=== PATIENT | male | born 1950 | race Caucasian/White ===

== ENCOUNTER 2018-07-26 11:08 | Observation (INO) | payer MEDICARE ==
[~2018-07-26] VITALS: Ht 177.8 cm; Wt 86.6 kg
[2018-07-26] VITALS (15 sets, daily range): BP systolic 97–158; BP diastolic 57–96
--- NOTE | ~2018-07-26 | H ---
[address] [address] HISTORY AND PHYSICAL Name: ANGELA HARDWICK Room: [address] M.RLindsay#: [id number] Admission: 07/26/18 Attend Phys: Angela Grossman MD, Discharge: 07/27/18 Date of : 52 Report #: [id number] THIS REPORT FOR: //name// Please refer to the History and Physical performed in the physician's office. By: 0645Medical Records Staff LAKESHIA /STEPHANIE
[2018-07-26 11:46] LABS: HEMATOCRIT 37.5 % (42.0-52.0); HEMOGLOBIN 12.9 gm/dL (14.0-18.0); MCH 29.8 pg (26.0-34.0); MCHC 34.4 g/dL (28.0-37.0); MCV 86.7 fL (80.0-100.0); MPV 8.1 fl. (7.2-11.1); RBC 4.33 mil/uL (4.50-6.00); RDW-CV 14.2 % (10.5-14.5); WBC 9.4 thou/uL (4.0-11.0)
[2018-07-26 11:54] LABS: ANION GAP 9 mmol/L (7-16); BUN 37 mg/dL (7-18); CALCIUM 8.9 mg/dL (8.5-10.1); CHLORIDE 107 mmol/L (98-107); CO2 28 mmol/L (21-32); CREATININE 1.8 mg/dL (0.6-1.3); GLUCOSE 170 mg/dL (70-99); POTASSIUM 4.5 mmol/L (3.5-5.1); SODIUM 144 mmol/L (136-145)
[2018-07-26 11:55] LABS: APTT 28.2 Seconds (25.0-31.3); PROTIME 10.4 Seconds (9.20-11.50)
[2018-07-26 11:58] LABS: ALBUMIN 3.6 g/dL (3.4-5.0); ALKALINE PHOSPHATASE 76 U/L (46-116); CHOLESTEROL 152 mg/dL (<200); HDL CHOLESTEROL 52 mg/dL (>40); LDL CHOLESTEROL 88 mg/dL (<100); SGOT 16 U/L (15-37); SGPT 33 U/L (30-65); TC:HDL 2.9 Ratio (Not establshd); TOTAL BILIRUBIN 0.4 mg/dL (<0.1-1.0); TOTAL PROTEIN 7.1 g/dL (6.4-8.2); TRIGLYCERIDE 60 mg/dL (<150); VLDL 12 mg/dL (<40)
[2018-07-26] MEDS ORDERED: CELEXA20 MG PO (11:58)
[2018-07-26] MEDS ORDERED: ASPIRIN325 PO (11:59)
[2018-07-26] MEDS ORDERED: LYRICA 75 MG CA75 MG PO (11:59)
[2018-07-26] MEDS ORDERED: COZAAR 25 MG TA25 M1 PO (12:00)
[2018-07-26] MEDS ORDERED: ZOCOR20 MG PO (12:00)
[2018-07-26 12:01] LABS: SERUM ASSESSMENT Clear
[2018-07-26] MEDS ORDERED: LANTUS100 UNIT/M SUBQ (12:02)
[2018-07-26] MEDS ORDERED: DOXYCYCLINE 10100 MG PO (12:05)
--- NOTE | 2018-07-26 15:38 | EKG ---
[place] [address] ELECTROCARDIOGRAM REPORT Name: ANGELA HARDWICK Room: [address]R.#: [id number] Admission: 07/26/18 Attend Phys: Angela Grossman MD, Discharge: Date of : 52 Report #: [id number] THIS REPORT FOR: //name// [facility] Test Date: 2018-07-26 Test Time: 11:42:32 Pat Name: ANGELA HARDWICK Department: Room: [facility] Gender: M Patient Information Coordinator: : 1950 Requested By: Angela Grossman Order Number: [id number] Ramesh MD: Angela Grossman Measurements Intervals [place] Rate: 58 P: 25 VA: 176 QRS: 22 QRSD: 155 T: 23 QT: 479 QTc: 471 Interpretive Statements Sinus rhythm Right bundle branch block No previous ECG available for comparison Electronically Signed On 07-26-2018 15:38:44 INSPECTOR STRUCTURAL BONDING by Angela Grossman [email or web address] <ELECTRONICALLY SIGNED> By: Angela Grossman MD, [facility] 07/26/18 1538 1142 1142 Angela Grossman MD, FACC /EPI
--- NOTE | 2018-07-26 15:40 | EKG ---
[place] [address] ELECTROCARDIOGRAM REPORT Name: ANGELA HARDWICK Room: [address]R.#: [id number] Admission: 07/26/18 Attend Phys: Angela Grossman MD, Discharge: Date of : 52 Report #: [id number] THIS REPORT FOR: //name// [facility] Test Date: 2018-07-26 Test Time: 15:21:26 Pat Name: ANGELA HARDWICK Department: Room: [facility] Gender: M Temperature Regulator Pyrometer: : 1950 Requested By: Angela Grossman Order Number: [id number] Ramesh MD: Angela Grossman Measurements Intervals [place] Rate: 66 P: 34 [place]: 155 QRS: 51 QRSD: 155 T: 42 QT: 450 QTc: 472 Interpretive Statements Sinus rhythm Right bundle branch block No previous ECG available for comparison Electronically Signed On 07-26-2018 15:40:09 TRAINING COORDINATOR by Angela Grossman [email or web address] <ELECTRONICALLY SIGNED> By: Angela Grossman MD, [facility] 07/26/18 1540 1521 1521 Angela Grossman MD, FACC /EPI
--- NOTE | 2018-07-26 16:44 | CARD ---
[address] [address] CARDIAC CATH REPORT Name: HARDWICKANGELA Albarado Room: [address] Steffanie#: [id number] Admission: 07/26/18 Attend Phys: Angela Grossman MD, Discharge: Date of : 52 Report #: [id number] THIS REPORT FOR: //name// APPROVED REPORT Study performed: 07/26/2018 11:47:45 Patient Details Patient Status: Out-Patient Room #: The patient is a 67 year-old male Event Personnel Angela Grossman Test Automation Architect, Sandra Mays RN, Lavelle Nair, Crystal Arteaga TRAY WORKER Scrub Procedures Performed Left heart catheterization selective coronary angiography and percutaneous coronary intervention to the LAD Indication Positive stress test, Chest pain Risk Factors Hypercholesterolemia, Hypertension Admission/Lab Medications/Medications given during procedure Aspirin, Platelet Aff. Inhib., Angiomax bolus and infusion Procedure Narrative The patient was brought electively to the Cardiac Catheterization Laboratory and was prepped and draped in a sterile manner. The right femoral was infiltrated with 2% Lidocaine subcutaneous anesthesia. A 6fr Ultimum Sheath sheath was inserted into the right femoral artery. Coronary angiography was performed using coronary diagnostic catheters. The right coronary system was accessed and visualized with a Diagnostic - JR4 catheter. The left coronary system was accessed and visualized with a Diagnostic - JL4 catheter. The left ventricle was accessed and visualized with a Diagnostic - PIG catheter. Left ventricular/Aortic Valve gradient assessed via catheter pullback. Pre-demployment femoral angiogram was performed . Closure device was deployed with a 6 Fr Angioseal STS 6Fr. The patient tolerated the procedure well and there were no complications associated with the procedure. There was no hematoma. Intra[place] [address] CARDIAC CATH REPORT Name: ANGELA HARDWICK Room: [address]#: [id number] Admission: 07/26/18 Attend Phys: Angela Grossman MD, Discharge: Date of : 52 Report #: [id number] Sedation start time: 1301 Case end Time: 1418 Fentanyl 25 mcg Versed 2 mg Fluoro Time: 23.9 minutes Dose: DAP 243591 cGycm2 2175 mGy Contrast Type and Amount: Visipaque 350 ml Diagnostic Cath Left Main 0% narrowing LAD 90% proximalmid vessel narrowing with 80% mid vessel stenosis and 80% distal stenosis Circumflex Dominant vessel with 40% distal narrowing and 30% narrowing of the prominent marginal branch in its midportion Right Coronary Small nondominant vessel with 30% mid vessel narrowing Left Ventriculography Left Ventriculography was not performed. IVUS Findings NC Trek RX 2.25x12 Hemodynamics The aortic pressure is 154/90 mmHg with a mean of 108 mmHg. The left ventricular pressure is 223/3 mmHg with a mean of mmHg. The left ventricular end diastolic pressure is 30 mmHg. PCI Technique Lesion Anticoagulation was achieved with Angiomax. Patient was preloaded with Angiomax IV 13 mg per kg. Percutaneous coronary intervention was performed on the mid left anterior descending artery segmentdistal left anterior descending artery segment. A 6FR XB 3.5 100CM Guide Catheter was used to engage the ostium. A IG: BMW 190cm Interventional Guidewire was used to cross the lesion. BALLOON DILATION A Balloon catheter Trek RX 2.25 X 12 was inserted and inflated up to 10.00atm for 11seconds. Additional Inflation: 8atm for 5seconds. Additional Inflation: 12atm for 15seconds. 10 MACHO FOR 19 SEC 10 MACHO FOR 11 SEC BALLOON DILATION A Balloon catheter NC Trek RX 2.25x12 was inserted and inflated up to 16atm for 10seconds. Additional Inflation: 16atm [place] 10[place]. [place] [address] CARDIAC CATH REPORT Name: ANGELA HARDWICK Room: [address] Steffanie#: [id number] Admission: 07/26/18 Attend Phys: Angela Grossman MD, Discharge: Date of : 52 Report #: [id number] STENT DEPLOYMENT A stent Xience Josy 2.86B46hj was inserted and inflated up to 10.00atm for 20seconds. Additional Inflation: 11atm for 15seconds. POST STENT DEPLOYMENT BALLOON DILATION A Balloon catheter NC Trek RX 2.25x12 was inserted and inflated up to 18atm for 10seconds. Additional Inflation: 19atm for 12seconds. Additional Inflation: 14atm for 7seconds. PCI Technique Lesion 2 Percutaneous Coronary Intervention was performed on the distal left anterior descending artery segment. Balloon Dilation A Balloon catheter NC Trek RX 2.25x12 was inserted and inflated up to macho for seconds. Stent Deployment A stent Xience Josy 2.01O26sd was inserted and inflated up to 18atm for 11seconds. Additional Inflation: 19atm for 11seconds. Post Stent Deployment Balloon Dilation A Balloon catheter was inserted and inflated up to 10atm for 19seconds. STENT DEPLOYMENT A stent Xience Josy 2.5X23mm was inserted and inflated up to 10.00atm for 11seconds. Additional Inflation: 12.00atm for 5seconds. Additional Inflation: 15atm for 11seconds. 16 MACHO FOR 13 SEC Conclusion #1 significant coronary artery disease characterized by the following: A 90% proximalmid LAD stenosis with 80% mid vessel stenosis and 80% distal stenosis B dominant circumflex with 40% distal narrowing and 30% narrowing of the midportion of the prominent marginal branch C non- dominant right coronary artery with 30% [place] [address] CARDIAC CATH REPORT Name: ANGELA HARDWICK Room: [address] Giovanni Valiente#: [id number] Admission: 07/26/18 Attend Phys: Angela Grossman MD, Discharge: Date of : 52 Report #: [id number] #2 normal left-sided hemodynamics study #3 successful percutaneous coronary intervention with deployment of sequential drug-eluting stents at the sites of 90% proximalmid, 80% mid, and 80% distal stenosis with 10 and 0 and 0% residual narrowings and GABINO-3 flow the distal vessel Recommendations Cardiac Risk Reduction Program Aggressive Medical Therapy Medications Administered Aspirin (any) Ticagrelor Diagnostic Cath Approved by: Angela Grossman MD Date/Time: 07/26/2018 16:42:28 <ELECTRONICALLY SIGNED> By: Angela Grossman MD, [facility] 07/26/18 1644 1644 1644Angela Grossman MD, FAC /INF
--- NOTE | 2018-07-26 18:03 | NUR ---
PT ARRIVED TO UNIT AT APPROX 1500, PLACED ON WEED CONTROLLER AND VITAL CHECKS. RIGHT GROIN SITE INTACT WITH NO HEMATOMA, DRESSING IS CLEAN, DRY, AND INTACT WELL. IV RIGHT AC, FLUIDS RUNNING. PT ORIENTED TO ROOM AND CALL LIGHT, INSTRUCTED TO LAY FLAT AND AVOID PUTTING ANY PRESSURE ON SITE, PT STATES UNDERSTANDING. VSS, PT DENIES ANY PAIN OR SOA.
[2018-07-27] VITALS: BP 139/65
[2018-07-27 04:00] VITALS: BP 129/51
[2018-07-27 05:17] LABS: HEMATOCRIT 31.7 % (42.0-52.0); HEMOGLOBIN 11.2 gm/dL (14.0-18.0); MCH 30.6 pg (26.0-34.0); MCHC 35.3 g/dL (28.0-37.0); MCV 86.9 fL (80.0-100.0); MPV 8.5 fl. (7.2-11.1); RBC 3.65 mil/uL (4.50-6.00); RDW-CV 14.5 % (10.5-14.5); WBC 10.6 thou/uL (4.0-11.0)
--- NOTE | 2018-07-27 05:37 | NUR ---
ASSUMED PT CARE AT 1930. PT AWAKE AND ORIENTED X4. VSS. CABLE REELER IN PLACE TRACING SR. DENIES ANY CHEST PAIN. POST CATH INSERTION SITE DRESSING IS DRY AND INTACT, NO HEMATOMA NOTED. WAS OFF BED REST AT APPROXIMATELY 2039. WAS ABLE TO STAND UP AND AMBULATE WITHOUT DIFFICULTY. WAS ABELE TOSLEEP THROUGH THE NIGHT. CALL LIGHT WITHIN REACH. HOURLY ROUNDING DONE FOR SAFETY
[2018-07-27 05:52] LABS: ALBUMIN 2.8 g/dL (3.4-5.0); CALCIUM 8.6 mg/dL (8.5-10.1); CREATININE 1.7 mg/dL (0.6-1.3); POTASSIUM 4.3 mmol/L (3.5-5.1); TOTAL BILIRUBIN 0.3 mg/dL (<0.1-1.0); TOTAL PROTEIN 5.4 g/dL (6.4-8.2); TROPONIN-I LEVEL 0.23 ng/mL (<0.06)
[2018-07-27 08:00] VITALS: BP 135/68
--- NOTE | 2018-07-27 10:07 | NUR ---
ASSUMED PT CARE AT 0700, PT IN BED, CALL LIGHT IN REACH, PLATE PUT IN WORKER TRACING SINUS RHYTHM WITH BBB, GROIN SITE DRY AND INTACT, SO SWELLING/BLEEDING AT SITE, PT DENIES PAIN. PT IS UP AD SIMEON, O2 SAT 97% RA, LS CTA.
[2018-07-27] MEDS ORDERED: BRILINTA90 MG PO (11:22)
[2018-07-27 11:23] VITALS: BP 143/74
--- NOTE | 2018-07-27 12:28 | NUR ---
PT DISCHARGED HOME WITH AND NURSING STAFF VIA . EDUCATED PT ON DISCHARGE INSTRUCTIONS, MEDICATIONS, AND FOLLOW UP APPTS. SUPERVISOR DRY CELL ASSEMBLY AND IV REMOVED. DRESSING TO RIGHT GROIN REMAINS DRY AND INTACT, SITE IS SOFT TO TOUCH.
--- NOTE | 2018-07-27 16:24 | EKG ---
[place] [address] ELECTROCARDIOGRAM REPORT Name: ANGELA HARDWICK Room: [address]#: [id number] Admission: 07/26/18 Attend Phys: Angela Grossman MD, Discharge: 07/27/18 Date of : 52 Report #: [id number] THIS REPORT FOR: //name// [facility] Test Date: 2018-07-27 Test Time: 03:13:42 Pat Name: ANGELA HARDWICK Department: Room: [facility] Gender: M Meeting Planner: [facility] : 1950 Requested By: Angela Grossman Order Number: [id number] Ramesh MD: Angela Grossman Measurements Intervals [place] Rate: 56 P: 22 PA: 178 QRS: 22 QRSD: 158 T: 20 QT: 490 QTc: 473 Interpretive Statements Sinus rhythm Right bundle branch block anterolateral st-t changes, possible ischemia Electronically Signed On 07-27-2018 16:24:36 DRIVER/REFUSE COLLECTOR by Angela Grossman [email or web address] <ELECTRONICALLY SIGNED> By: Angela Grossman MD, [facility] 07/27/18 1624 D: 01312 2 Angela Grossman MD, FACC /EPI
--- NOTE | 2018-07-29 18:30 | D ---
[address] [address] DISCHARGE SUMMARY Name: HARDWICKANGELA LEON Room: [address] Giovanni Valiente#: [id number] Admission: 07/26/18 Attend Phys: Angela Grossman MD, Discharge: 07/27/18 Date of : 52 Report #: [id number] THIS REPORT FOR: //name// CC: Pierre Grossman DATE OF SERVICE: 07/27/2018 FINAL DISCHARGE DIAGNOSES: 1. Unstable angina. 2. Abnormal nuclear stress test. 3. Coronary artery disease. 4. Status post percutaneous coronary intervention of the left anterior descending. 5. Hypertension. 6. Type 2 diabetes. 7. History of tobacco use. PROCEDURES: 07/26/2018 - left heart catheterization, selective coronary arteriography and percutaneous coronary intervention of the right coronary artery. HOSPITAL COURSE: The patient is a very pleasant 67-year-old male who presented with dyspnea on exertion, had an abnormal nuclear stress test with inducible inferior ischemia. He has underlying hypertension, diabetes and tobacco use. He underwent cardiac catheterization on 07/26/2018, which revealed sequential significant LAD stenosis with 90% proximal - mid LAD stenosis, 80% mid LAD stenosis, and 80% distal LAD stenosis. I deployed drug-eluting stents in the proximal - mid, mid and distal portions with 10%, 0% and 0% residual narrowing and GABINO 3 flow of the distal vessel. He did well post-procedurally and there was good hemostasis at the right femoral site of catheterization. LABORATORY DATA: On 07/27/2018 revealed sodium 147; potassium 4.3; BUN 33, down from 37; creatinine 1.7, down from 1.8. Hemoglobin 11.2, white blood cell count 10,600 with 209,000 platelets. Troponin mateusz inconsequentially to 0.23. DISCHARGE MEDICATIONS: The patient ambulated in the hallways without difficulty and was discharged home on the following medications: Aspirin 81 mg daily, Celexa 20 mg daily, doxycycline 100 mg b.i.d., Lantus insulin 25 units at bedtime, losartan 25 mg daily, Lyrica 75 mg daily, simvastatin 20 mg at bedtime, ticagrelor or Brilinta 90 mg b.i.d. with 100 mg periprocedural loading dose. The patient is scheduled to return to see me on 08/17/2018 at 1300 [place] [address] DISCHARGE SUMMARY Name: ANGELA HARDWICK [address] [id number] Admission: 07/26/18 Attend Phys: Angela Grossman MD, Discharge: 07/27/18 Date of : 52 Report #: [id number] [facility]. Thus, the patient is discharged to home in stable condition on the aforementioned medications with followup as iterated above. <ELECTRONICALLY SIGNED> By: Angela Grossman MD, [facility] 07/29/18 1830 0931 1035Joarsenio Grossman MD, [facility] /nt
== END 2018-07-27 12:15 | disposition home or self-care (01) ==
LOC: M.CL 11:08 → M.TBA-CV 14:31 → M.2W 15:02
PROVIDERS: ADMIT Internal Medicine
DX: I25.110 Atherosclerotic heart disease of native coronary artery with unstable angina pectoris (principal); I10 Essential (primary) hypertension; E11.9 Type 2 diabetes mellitus without complications; E78.5 Hyperlipidemia, unspecified; F17.200 Nicotine dependence, unspecified, uncomplicated; Z79.82 Long term (current) use of aspirin; Z79.899 Other long term (current) drug therapy

== ENCOUNTER → 2019-07-25 | Outpatient (CLI) | payer MEDICARE, OTHER ==
[~2019-07-25] MED LIST: ASPIRIN325 PO; BRILINTA90 MG PO; CELEXA20 MG PO; COZAAR 25 MG TA25 M1 PO; DOXYCYCLINE 10100 MG PO; LANTUS100 UNIT/M SUBQ; LYRICA 75 MG CA75 MG PO; ZOCOR20 MG PO
--- NOTE | 2019-07-25 16:38 | CARDNUC ---
[place] [address] CARDIAC NUCLEAR IMAGING REPORT Name: ANGELA HARDWICK Room: [facility]#: [id number] Admission: 07/25/19 Attend Phys: Celina Hill Discharge: Date of : 52 Date of Service: 07/25/19 1637 Report #: [id number] THIS REPORT FOR: //name// APPROVED REPORT Imaging Protocol: Stress Tc-99m/Rest Tc-99m 2 days Study performed: 07/25/2019 12:30:00 Indication: CAD s/p PCI Patient Location: Out-Patient Stress Tech: Shraddha Nash Stress Nurse: Amanda Bonilla RN Ht: 5 ft 10 in Wt: 183 lbs BSA: 2.01 m2 BMI: 26.25 Medical History Medical History: Angina, CAD s/p stent, Current Smoker, Diabetes, Fatigue, HTN, Hyperlipidemia, SOB, Weakness. Medications: Amlodipine, ASA 81 Mg, Candesartan, Simvastatin, Patient stopped Effient 3 days ago r/t rash/itching/edema. Allergies: Penicillin, Erythromycin. Cardiac Risk Factors: Age, Current Smoker, DM, HTN, Hyperlipidemia, SOB. Previous Cardiac Procedures: PCI - LAD Pretest Chest Pain Characteristics: No chest pain Exercise History: Indeterminate Physical Disabilities: Hip and Knee pain. Meds Held (24 hrs): None Stress Test Details Stress Test: Exercise stress testing was performed using a Saúl protocol. HR Max Heart Rate (APMHR): 153 bpm Resting HR: 56 bpm Target HR (85% APMHR): 130 bpm Max HR Achieved: 136 bpm % of APMHR: 88 Recovery HR: 77 bpm HR response to stress: Normal HR response to stress BP Resting BP: 209/79 mmHg Max BP: 252/50 mmHg Recovery BP: 206/73 [place] [address] CARDIAC NUCLEAR IMAGING REPORT Name: ANGELA HARDWICK Room: [facility]#: [id number] Admission: 07/25/19 Attend Phys: Celina Hill Discharge: Date of : 52 Date of Service: 07/25/19 1637 Report #: [id number] BP response to stress: Abnormal hypertensive response to stress. ECG Resting ECG: Sinus Rhythm, RBBB Stress ECG: Sinus tachycardia, RBBB ST Change: Downsloping ST depression Maximum ST Deviation: 0.5 mm Arrhythmia: None Recovery ECG: Sinus Rhythm, LBBB Recovery ST Change: Downsloping ST depression Recovery ST Deviation: 0.5 mm Recovery Arrhythmia: None Clinical Reason for Termination: Completed protocol, Maximal effort Stress Symptoms: Leg Fatigue/Pain, Dyspnea, Dizziness, Fatigue, Weakness Exercise duration: 4 min 55 sec Exercise capacity: 6.18 METs Overall Exercise Capacity for Age: Reduced The patient exhibited limited exercise tolerance. Exercise was discontinued due to achievement of target heart rate. Nurse Comments A 68 year old male presented for Saúl Protocol Nuclear stress test as he had coffee this morning before test. Stress Test for patient s/p PCI (3 stents in LAD) one year ago. Treadmill tolerated to maximal effort with target HR reached. Recovery unremarkable. Patient escorted by staff to Nuclear Medicine for imaging. Patient was stable with asymptomatic HTN and stated he felt good at that time. Patient reported he stopped his Effient 3 days ago r/t itching/rash/edema for the past 8-9 weeks and symptoms have improved since stopping his Effient. Dr. Grossman notified. Mary Pak met with patient in stress room to review medications. Mary Beckwith ordered new blood thinners to replace Effient and educated patient on blood thinners s/p stents. Stress ECG Conclusion The baseline 12-lead EKG shows sinus rhythm with right bundle-branch block without significant ST downsloping ST segment depression that does not meet diagnostic criteria for ischemia. There were no stress-induced arrhythmias. Study Quality Study: Good Artifact: [place] [address] CARDIAC NUCLEAR IMAGING REPORT Name: ANGELA HARDWICK [id number] Admission: 07/25/19 Attend Phys: Celina Hill Discharge: Date of : 52 Date of Service: 07/25/19 1637 Report #: [id number] Study Data At rest, the left ventricular ejection fraction was 70%.. Post stress, the left ventricular ejection was 73%.. TID = 1.08. Perfusion Myocardial perfusion images show a focal reversible defect involving the inferoapical and apical region. Defect is of moderate to severe intensity. No other defects are identified. Wall Motion There appears to be mild global hypokinesis without obvious focal wall motion abnormality. Nuclear Conclusion ECG Findings: equivocal Clinical Findings: negative for ischemia Nuclear Findings: positive for ischemia Exercise Capacity: limited Left Ventricular Function: abnormal Risk Study: high Myocardial perfusion images suggest ischemia of the inferoapical and apical wall. LV systolic function is mildly decreased. risk study. <Conclusion> The baseline 12-lead EKG shows sinus rhythm with right bundle-branch block without significant ST downsloping ST segment depression that does not meet diagnostic criteria for ischemia. There were no stress-induced arrhythmias. <ELECTRONICALLY SIGNED> By: Jun Castro MD, FACC 07/25/19 1637 1637 1637 Jun Castro MD, FACC /INF
== END ==
LOC: M.NUC 02-01 16:54
DX: I25.10 Atherosclerotic heart disease of native coronary artery without angina pectoris (principal); E11.9 Type 2 diabetes mellitus without complications; I10 Essential (primary) hypertension; E78.5 Hyperlipidemia, unspecified; Z79.899 Other long term (current) drug therapy; Z95.5 Presence of coronary angioplasty implant and graft; Z87.891 Personal history of nicotine dependence

== ENCOUNTER 2019-09-23 09:38 | Observation (INO) | payer MEDICARE, OTHER ==
[2019-09-23] VITALS (12 sets, daily range): BP systolic 131–224; BP diastolic 41–87
[~2019-09-23] VITALS: Ht 177.8 cm; Wt 83.9 kg
[~2019-09-23 09:38] MED LIST changes: +ASPIR 8181 MG PO; -ASPIRIN325 PO; +ATACAND8 MG PO; +LYRICA 50 MG50 MG PO; -LYRICA 75 MG CA75 MG PO; +NORVASC 2.5 MG2.5 M1 PO; +PLAVIX 75 MG TA75 M1 PO
[2019-09-23 10:19] LABS: HEMATOCRIT 35.7 % (42.0-52.0); HEMOGLOBIN 12.3 gm/dL (14.0-18.0); MCH 29.3 pg (26.0-34.0); MCHC 34.6 g/dL (28.0-37.0); MCV 84.6 fL (80.0-100.0); MPV 8.2 fl. (7.2-11.1); RBC 4.22 mil/uL (4.50-6.00); RDW-CV 15.5 % (10.5-14.5); WBC 9.7 thou/uL (4.0-11.0)
[2019-09-23] MEDS ORDERED: COZAAR 50 MG TA50 M1 PO (10:29)
[2019-09-23 10:39] LABS: ANION GAP 9 mmol/L (7-16); BUN 37 mg/dL (7-18); CALCIUM 8.4 mg/dL (8.5-10.1); CHLORIDE 107 mmol/L (98-107); CO2 26 mmol/L (21-32); CREATININE 2.2 mg/dL (0.6-1.3); GLUCOSE 149 mg/dL (70-99); POTASSIUM 4.5 mmol/L (3.5-5.1); PROTIME 9.9 Seconds (9.20-11.50); SODIUM 142 mmol/L (136-145)
[2019-09-23 10:44] LABS: ALBUMIN 3.1 g/dL (3.4-5.0); ALKALINE PHOSPHATASE 81 U/L (46-116); CHOLESTEROL 250 mg/dL (<200); HDL CHOLESTEROL 65 mg/dL (>40); LDL CHOLESTEROL 166 mg/dL (<100); SERUM ASSESSMENT Clear; SGOT 22 U/L (15-37); SGPT 31 U/L (30-65); TC:HDL 3.8 Ratio (Not establshd); TOTAL BILIRUBIN 0.4 mg/dL (<0.1-1.0); TRIGLYCERIDE 99 mg/dL (<150); VLDL 20 mg/dL (<40)
--- NOTE | 2019-09-23 16:50 | EKG ---
[place] [address] ELECTROCARDIOGRAM REPORT Name: ANGELA HARDWICK Room: [address]R.#: [id number] Admission: 09/23/19 Attend Phys: Celina Hill Discharge: Date of : 52 Date of Service: 09/23/19 0955 Report #: [id number] THIS REPORT FOR: //name// [facility] Test Date: 2019-09-23 Test Time: 09:55:35 Pat Name: ANGELA HARDWICK Department: Room: [facility] Gender: M Database Support: ALEXIS : 1950 Requested By: Angela Grossman Order Number: [id number] Ramesh MD: Angela Grossman Measurements Intervals [place] Rate: 63 P: 15 [place]: 152 QRS: 16 QRSD: 150 T: 36 QT: 468 QTc: 480 Interpretive Statements Sinus rhythm Right bundle branch block Compared to ECG 07/27/2018 03:13:42 ST (T wave) deviation no longer present Possible ischemia no longer present Electronically Signed On 09-23-2019 16:48:55 CDT by Angela Grossman [email or web address] <ELECTRONICALLY SIGNED> By: Angela Grossman MD, [facility] 09/23/19 1648 0955 0955 Angela Grossman MD, [facility] /EPI
--- NOTE | 2019-09-23 16:54 | EKG ---
[place] [address] ELECTROCARDIOGRAM REPORT Name: ANGELA HARDWICK Room: [address] M.R.#: [id number] Admission: 09/23/19 Attend Phys: Celina Hill Discharge: Date of : 52 Date of Service: 09/23/19 1326 Report #: [id number] THIS REPORT FOR: //name// [facility] Test Date: 2019-09-23 Test Time: 13:26:57 Pat Name: ANGELA HARDWICK Department: Room: [facility] Gender: M Change Management Manager: : 1950 Requested By: Angela Grossman Order Number: [id number] Ramesh MD: Angela Grossman Measurements Intervals [place] Rate: 65 P: 20 PA: 152 QRS: 37 QRSD: 151 T: 51 QT: 463 QTc: 482 Interpretive Statements Sinus rhythm Right bundle branch block Compared to ECG 07/27/2018 03:13:42 ST (T wave) deviation no longer present Possible ischemia no longer present Electronically Signed On 09-23-2019 16:53:14 CDT by Angela Grossman [email or web address] <ELECTRONICALLY SIGNED> By: Angela Grossman MD, [facility] 09/23/19 1653 1326 1326 Angela Grossman MD, [facility] /EPI
--- NOTE | 2019-09-23 17:07 | NUR ---
RECEIVED PT FROM TROLLEY CAR OPERATOR AT 142O. AOX4, O2 SAT 90'S RA. GET SITUATED TO ROOM. TELE IN PLACED TRACING SR. PT DENIES PAIN. R GROIN CATH SITE C/D/I. POST CATH VITALS CHARTED. IVF INFUSSING ORDERED. PT HAS SHIELDS CATH DRAINING WELL. PT BEDREST UNTIL 1800. PT ACCU CHECK. VSS, HOURLY ROUNDING, CALL LIGHT WITHIN REACH, WILL CONTINUE TO MONITOR.
[2019-09-24 00:05] VITALS: BP 137/55
[2019-09-24 04:03] VITALS: BP 143/59
[2019-09-24 04:44] LABS: HEMOGLOBIN 10.7 gm/dL (14.0-18.0); MCH 29.9 pg (26.0-34.0); MCHC 35.6 g/dL (28.0-37.0); MCV 83.8 fL (80.0-100.0); MPV 7.4 fl. (7.2-11.1); RBC 3.58 mil/uL (4.50-6.00); RDW-CV 15.2 % (10.5-14.5); WBC 12.3 thou/uL (4.0-11.0)
[2019-09-24 05:07] LABS: ALBUMIN 2.3 g/dL (3.4-5.0); CALCIUM 7.8 mg/dL (8.5-10.1); CREATININE 2.2 mg/dL (0.6-1.3); POTASSIUM 4.3 mmol/L (3.5-5.1); TOTAL BILIRUBIN 0.3 mg/dL (<0.1-1.0); TOTAL PROTEIN 5.5 g/dL (6.4-8.2)
[2019-09-24 05:09] LABS: TROPONIN-I LEVEL 1.73 ng/mL (<0.06)
--- NOTE | 2019-09-24 07:00 | NUR ---
ASSUMED PATIENT CARE AT 1900. ASSESSMENT COMPLETED CHARTED. PATIENT IS SR WITH A BBB ON THE MONITOR. HOURLY ROUNDING IN PLACE FOR PATIENT SAFETY. CLWR.
[2019-09-24 08:00] VITALS: BP 154/57
[2019-09-24 09:17] VITALS: BP 151/72
--- NOTE | 2019-09-24 10:21 | NUR ---
ASSUMED PT CARE AT 0800, AOX4, UP AD SIMEON, O2 SAT 90'S RA. TRACING SR BBB ON TELE. PT DENIES PAIN. D/C ALYSON. PT FOR DISCHARGE. PT R LOY C/D/I. VSS. AM ASSESSMENT CHARTED. MEDS GIVEN PER MAR. CALL LIGHT WITHIN REACH. WILL CONTINUE TO MONITOR.
[2019-09-24] MEDS ORDERED: EFFIENT10 MG PO (10:39)
[2019-09-24 10:41] VITALS: BP 151/72
--- NOTE | 2019-09-24 11:30 | NUR ---
DISCHARGED PLAN DISCUSS WITH PT. IV, TELE REMOVED. MEDICATION PACKET GIVEN. ALL BELONGINGS PACKED AND CHECK. REMINDED TO FOLLOW UP WITH CARDIOLOGY. CATH SITE CARE ADVISED. LEFT THE UNIT AT 1130.
--- NOTE | 2019-09-24 11:55 | CARD ---
[address] [address] CARDIAC CATH REPORT Name: HARDWICKANGELA Room: [address] Giovanni Valiente#: [id number] Admission: 09/23/19 Attend Phys: Angela Grossman MD, Discharge: 09/24/19 Date of : 52 Report #: [id number] THIS REPORT FOR: //name// cc: Pierre Orozco Aaron DO ~ THIS REPORT FOR: //name// APPROVED REPORT Study performed: 09/23/2019 10:58:16 Patient Details The patient is a 68 year-old male Event Personnel Angela Grossman Pipe Racker, Georgie Simental RN RN, Rome Cowart RN RN, Lavelle Nair Monitor, Ehsan Stephens RTR Scrub, Angela Grossman Cigarette And Filter Chief Inspector Procedures Performed Left heart catheterization selective coronary angiography and percutaneous coronary intervention to the LAD with deployment of drug-eluting stents in the proximal mid and distal LAD Indication Dyspnea, Positive stress test Risk Factors Hypercholesterolemia, Hypertension, Diabetes Previous Procedures/Diagnoses Previous PCI Admission/Lab Medications/Medications given during procedure Angiomax bolus and infusion Procedure Narrative The patient was brought electively to the Cardiac Catheterization Laboratory and was prepped and draped in a sterile manner. The right femoral was infiltrated with 2% Lidocaine subcutaneous anesthesia. A [place] 6 FR sheath was inserted into the right femoral artery. Coronary angiography was performed using coronary diagnostic catheters. The right coronary system was accessed and visualized with a Diagnostic - JR4 catheter. The [place] [address] CARDIAC CATH REPORT Name: ANGELA HARDWICK Room: [address] Giovanni Valiente#: [id number] Admission: 09/23/19 Attend Phys: Angela Grossman MD, Discharge: 09/24/19 Date of : 52 Report #: [id number] and visualized with a Diagnostic - JL4 catheter. The left ventricle was accessed and visualized with a Diagnostic- STR PIG catheter. Left ventricular/Aortic Valve gradient assessed via catheter pullback. Pre-demployment femoral angiogram was performed . Closure device was deployed with a Fr Angioseal STS 6Fr. The patient tolerated the procedure well and there were no complications associated with the procedure. There was no hematoma. Intraoperative Conscious Sedation Sedation start time: 1135 Case end Time: 1227 Fentanyl 25 mcg Versed 2 mg Fluoro Time: 15.8 minutes Dose: DAP 68282 cGycm2 1934 mGy Contrast Type and Amount: Visipaque 260 ml Coronary Angiography The patient's coronary anatomy is left dominant. Diagnostic Cath Left Main 0% narrowing LAD 80% proximal 75% mid and 90% tubular distal LAD stenosis Circumflex 30% first marginal narrowing of 40% distal circumflex narrowing, this being a dominant vessel Right Coronary Small nondominant vessel with 30% proximal and mid vessel narrowing Left Ventriculography Left Ventriculography was not performed. Hemodynamics The aortic pressure is 203/69 mmHg with a mean of 119 mmHg. The left ventricular pressure is 202/-3 mmHg with a mean of mmHg. The left ventricular end diastolic pressure is 18 mmHg. There was no gradient across the aortic valve upon pullback. PCI Technique Lesion Anticoagulation was achieved with Angiomax. Patient was preloaded with Angiomax IV 13 ml. Percutaneous coronary intervention was performed on the proximal left anterior descending artery segment. A 6FR LAUNCHER EBU 4.0 Guide Catheter was used to engage the ostium. A IG: BMW 190cm Interventional Guidewire [place] [address] CARDIAC CATH REPORT Name: ANGELA HARDWICK Room: [address]#: [id number] Admission: 09/23/19 Attend Phys: Angela Grossman MD, Discharge: 09/24/19 Date of : 52 Report #: [id number] BALLOON DILATION A Balloon catheter AngioSculpt PTCA 3.0 X 10mm was inserted and inflated up to 12atm for 9seconds. Additional Inflation: 12atm for 7seconds. Additional Inflation: 14atm for 8seconds. 16 MACHO FOR 8 SEC 18 MACHO FOR 6 SEC 18 MACHO FOR 13 SEC 18 MACHO FOR 14 SEC STENT DEPLOYMENT A drug-eluting stent [place] RX Stent 3.0X15mm was inserted and inflated up to 16atm for 15seconds. Final angiography reveals 0 % stenosis with GABINO 3 flow. PCI Technique Lesion 2 Percutaneous Coronary Intervention was performed on the distal left anterior descending artery segment. The lesion stenosis prior to intervention was 90% with GABINO 3 flow. Balloon Dilation A Balloon catheter Trek RX 2.25 X 12 was inserted and inflated up to 16atm for 10seconds. Additional Inflation: 14atm for 12seconds. Stent Deployment A stent [place] RX Stent 2.72W21yr was inserted and inflated up to 10.00atm for 13seconds. Additional Inflation: 13atm for 12seconds. Additional Inflation: 15atm for 8seconds. Final angiography reveals 0 % stenosis with GABINO 3 flow. PCI Technique Lesion 3 Percutaneous Coronary Intervention was performed on the mid left anterior descending artery segment. The lesion stenosis prior to intervention was 75% with GABINO 3 flow. Balloon Dilation A Balloon catheter Trek RX 2.25 X 12 was inserted and inflated up to 10atm for 10seconds. Stent Deployment A stent [place] RX Stent 2.5X26mm was inserted and inflated up to 12.00atm for 9seconds. Additional Inflation: 14.00atm for 8seconds. Final angiography reveals 0 % stenosis with GABINO 3 [place] [address] CARDIAC CATH REPORT Name: ANGELA HARDWICK Room: [address] Giovanni Valiente#: [id number] Admission: 09/23/19 Attend Phys: Angela Grossman MD, Discharge: 09/24/19 Date of : 52 Report #: [id number] A stent was inserted and inflated up to 14atm for 5seconds. Conclusion #1 significant coronary artery disease characterized by the following: A 80% calcified proximal LAD stenosis with 75% mid vessel stenosis and 90% tubular distal LAD stenosis B 30% narrowing of the first marginal branch of the dominant circumflex with 40% distal circumflex narrowing C 30% proximal and mid vessel narrowing of the small nondominant right coronary artery #2 moderately severe systemic systolic hypertension with moderate elevation of left ventricular end-diastolic pressure at rest #3 successful percutaneous coronary intervention with deployment of drug-eluting stents in the proximal mid and distal LAD after atherotomy/atherectomy of the proximal LAD and angioplasty of the mid and distal LAD with 0% residual narrowings at all sites following final stent deployment Recommendations Cardiac Risk Reduction Program Aggressive Medical Therapy Medications Administered Aspirin (any) Prasugrel Diagnostic Cath Approved by: Angela Grossman MD Date/Time: 09/24/2019 11:48:37 <ELECTRONICALLY SIGNED> By: Angela Grossman MD, FACC 09/24/19 1153 1153 1153Angela Grossman MD, FACC /INF
--- NOTE | 2019-09-24 13:23 | D ---
[address] [address] DISCHARGE SUMMARY Name: ANGELA HARDWICK Per Room: [address] Giovanni Valiente#: [id number] Admission: 09/23/19 Attend Phys: Angela Grossman MD, Discharge: 09/24/19 Date of : 52 Report #: [id number] THIS REPORT FOR: //name// cc: Pierre Orozco Aaron DO ~ THIS REPORT FOR: //name// CC: Pierre Grossman FINAL DISCHARGE DIAGNOSES: 1. Abnormal nuclear stress test. 2. Coronary artery disease. 3. Type 2 diabetes. 4. Hypertension. 5. Hyperlipidemia. 6. Status post percutaneous coronary intervention. PROCEDURES: On 09/23/2019 -- left heart catheterization, selective coronary arteriography and percutaneous coronary intervention with deployment of 3 drug-eluting stents in the proximal, mid and distal LAD. The patient is a very pleasant and active 68-year-old male with a history of coronary artery disease, status post remote PCI. Recently, he is noted dyspnea on exertion, but no typical chest pain suggestive of angina. Recent nuclear stress test demonstrated inducible inferoapical and apical ischemia. Given this data and his risk factor profile, I recommended proceeding with recatheterization, which was undertaken on 09/23/2019. That study revealed significant stenosis of the proximal, mid and distal LAD. There was 80% proximal, 75% mid and 90% distal stenosis. I deployed 3 drug-eluting stents, [place] in the distal, mid, and proximal LAD with 0% residual narrowing and GABINO 3 flow of the distal vessel. Troponin mateusz minimally to 1.73. The patient ambulated in the hallways without difficulty. Additional lab revealed sodium 143, potassium 4.3, BUN 34 down from 37 preprocedurally; creatinine 2.2, stable from preprocedural value; glucose 73. Hemoglobin 10.7, white blood cell count 12,300 with 235,000 platelets. DISCHARGE MEDICATIONS: The patient was discharged to home on the following medications: Amlodipine 2.5 mg daily, aspirin 81 mg daily, citalopram or Celexa 20 mg daily, Lantus insulin 25 units each day at bedtime, losartan 50 mg daily, prasugrel or Effient 10 mg daily, Lyrica 50 mg b.i.d., simvastatin 20 [place] [address] DISCHARGE SUMMARY Name: ANGELA HARDWICK Room: [address] Steffanie#: [id number] Admission: 09/23/19 Attend Phys: Angela Grossman MD, Discharge: 09/24/19 Date of : 52 Report #: [id number] bedtime. The patient is scheduled to return to see me in the office on 11/13/2018 at 1000 hours. Therefore, the patient is discharged to home in stable condition on the aforementioned medications with followup as iterated above. <ELECTRONICALLY SIGNED> By: Angela Grossman MD, FACC 09/24/19 1323 1021 1058Joarsenio Grossman MD, [facility] /nt
--- NOTE | 2019-09-25 16:30 | EKG ---
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
== END 2019-09-24 11:15 | disposition home or self-care (01) ==
LOC: M.CL 09:38 → M.TBA-CV 12:48 → M.2W 14:20
PROVIDERS: ADMIT Internal Medicine
DX: I25.10 Atherosclerotic heart disease of native coronary artery without angina pectoris (principal); E11.9 Type 2 diabetes mellitus without complications; I10 Essential (primary) hypertension; E78.5 Hyperlipidemia, unspecified

== ENCOUNTER 2019-11-07 08:04 | Observation (INO) | payer MEDICARE, OTHER ==
[2019-11-07] VITALS (17 sets, daily range): BP systolic 106–190; BP diastolic 55–84
[~2019-11-07] VITALS: Ht 152.4 cm; Wt 81.2 kg
--- NOTE | ~2019-11-07 | H ---
[address] [address] HISTORY AND PHYSICAL Name: ANGELA HARDWICK Room: [address] M.RLindsay#: [id number] Admission: 11/07/19 Attend Phys: Angela Grossman MD, Discharge: 11/08/19 Date of : 52 Report #: [id number] THIS REPORT FOR: //name// cc: Pierre Orozco Aaron DO ~ THIS REPORT FOR: //name// Please refer to the History and Physical performed in the physician's office. By: [id number] Records Staff [facility] /STEPHANIE
[~2019-11-07 08:04] MED LIST changes: +COZAAR 50 MG TA50 M1 PO; +EFFIENT10 MG PO
[2019-11-07] MEDS ORDERED: HYDRALAZINE 2525 MG PO (08:26)
[2019-11-07 08:28] LABS: HEMATOCRIT 34.4 % (42.0-52.0); HEMOGLOBIN 11.6 gm/dL (14.0-18.0); MCH 29.2 pg (26.0-34.0); MCHC 33.8 g/dL (28.0-37.0); MCV 86.6 fL (80.0-100.0); MPV 7.8 fl. (7.2-11.1); RBC 3.97 mil/uL (4.50-6.00); RDW-CV 15.8 % (10.5-14.5); WBC 14.8 thou/uL (4.0-11.0)
[2019-11-07] MEDS ORDERED: HYDROCHLOROTHIA25 M2 PO (08:28)
[2019-11-07] MEDS ORDERED: ALTACE10 MG PO (08:28)
[2019-11-07 08:42] LABS: APTT 29.4 Seconds (25.0-31.3); PROTIME 10.1 Seconds (9.20-11.50)
[2019-11-07 08:55] LABS: ALBUMIN 3.5 g/dL (3.4-5.0); ALKALINE PHOSPHATASE 80 U/L (46-116); ANION GAP 13 mmol/L (7-16); BUN 55 mg/dL (7-18); CALCIUM 7.8 mg/dL (8.5-10.1); CHLORIDE 112 mmol/L (98-107); CHOLESTEROL 166 mg/dL (<200); CO2 19 mmol/L (21-32); CREATININE 2.8 mg/dL (0.6-1.3); GLUCOSE 120 mg/dL (70-99); HDL CHOLESTEROL 57 mg/dL (>40); LDL CHOLESTEROL 78 mg/dL (<100); SERUM ASSESSMENT Clear; SGOT 12 U/L (15-37); SGPT 28 U/L (30-65); SODIUM 144 mmol/L (136-145); TC:HDL 2.9 Ratio (Not establshd); TOTAL BILIRUBIN 0.3 mg/dL (<0.1-1.0); TOTAL PROTEIN 7.3 g/dL (6.4-8.2); TRIGLYCERIDE 159 mg/dL (<150); VLDL 32 mg/dL (<40)
--- NOTE | 2019-11-07 13:47 | NUR ---
ASSUMED PT CARE REPORT RECEIVED FROM NURSE PT IS AOX4. ON RA O2 SAT 99%. ON BEDREST UNTIL 1700. . RIGHT GROIN SITE IS INTACT. VS BEING TAKEN Q15 MINUTES. ACCUCHECK ACHS. NO INSULIN NEEDED AT LUNCH TIME. IV FLUID INFUSING AT 125 PER HOUR ORDERED. LUNCH OFFERED. SHIELDS PATENT. URINE IS YELLOW IN COLOR. TRACING SR ON MEDICAL OFFICE COORDINATOR. EKG DONE BY TECH AT BEDSIDE. ADMISSION HX AND ASSESSMENT DONE. CALL LIGHT WITHIN REACH. WILL CONTINUE TO MONITOR PT.
--- NOTE | 2019-11-07 15:00 | EKG ---
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: ALEXIS : 1950 Requested By: Angela Grossman Order Number: [id number] Ramesh MD: Angela Grossman Measurements Intervals [place] Rate: 67 P: -13 VT: 157 QRS: 32 QRSD: 151 T: 20 QT: 445 QTc: 470 Interpretive Statements Sinus rhythm Right bundle branch block Compared to ECG 09/24/2019 05:34:07 No significant changes Electronically Signed On 11-07-2019 14:59:05 CDT by Angela Grossman [email or web address] <ELECTRONICALLY SIGNED> By: Angela Grossman MD, [facility] 11/07/19 1459 Angela Grossman MD, [facility] /EPI
--- NOTE | 2019-11-07 15:02 | EKG ---
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: ALEXIS : 1950 Requested By: Angela Grossman Order Number: [id number] Ramesh MD: Angela Grossman Measurements Intervals [place] Rate: 61 P: 27 MS: 156 QRS: 32 QRSD: 154 T: 26 QT: 457 QTc: 461 Interpretive Statements Sinus rhythm Right bundle branch block Inferior infarct, old possible Compared to ECG 09/24/2019 05:34:07 Myocardial infarct finding now present Electronically Signed On 11-07-2019 15:00:30 CDT by Angela Grossman [email or web address] <ELECTRONICALLY SIGNED> By: Angela Grossman MD, FACC 11/07/19 1500 1225 1225 Angela Grossman MD, [facility] /EPI
--- NOTE | 2019-11-07 15:13 | CARD ---
[address] [address] CARDIAC CATH REPORT Name: ANGELA HARDWICK Room: [address] M.RLindsay#: [id number] Admission: 11/07/19 Attend Phys: Angela Grossman MD, Discharge: Date of : 52 Report #: [id number] THIS REPORT FOR: //name// cc: Pierre Orozco Aaron DO ~ APPROVED REPORT Study performed: 11/07/2019 09:17:23 Patient Details Patient Status: Out-Patient Room #: The patient is a 68 year-old male Event Personnel Angela Grossman Auto Striper, Sandra Mays RN, Rome Cowart RN RN, Ehsan Stephens RTR Scrub, Jessica Schumacher RTR Monitor, Black Valle PLUMBER SUPERVISOR Monitor Procedures Performed Left Heart Cath w/or w/o Coronaries [id number] [facility] HANS Place w/wo Plasty Single LAD [id number] HANS Place w/wo Plasty Single LAD [id number] Hemostasis w/ Angioseal Indication Unstable angina Risk Factors Hypercholesterolemia, Hypertension, Last Creatanine 2.8 Previous Procedures/Diagnoses Previous PCI Admission/Lab Medications/Medications given during procedure Angiomax bolus and infusion Procedure Narrative The patient was brought electively to the Cardiac Catheterization Laboratory and was prepped and draped in a sterile manner. The right femoral was infiltrated with 1% Lidocaine subcutaneous anesthesia. A [place] 6 FR sheath was inserted into the RFA. Coronary angiography was performed using coronary diagnostic catheters. The right coronary system was accessed and visualized with a JR4 catheter. The left coronary system was accessed and visualized with a JL4 catheter. The left ventricle was accessed and visualized with a PIG catheter. Left ventricular/Aortic Valve gradient assessed [place] [address] CARDIAC CATH REPORT Name: ANGELA HARDWICK Room: [address] YosephRLindsay#: [id number] Admission: 11/07/19 Attend Phys: Angela Grossman MD, Discharge: Date of : 52 Report #: [id number] Pre-demployment femoral angiogram was performed . Closure device was deployed with a Fr Angioseal STS 6Fr. The patient tolerated the procedure well and there were no complications associated with the procedure. There was no hematoma. Intraoperative Conscious Sedation Sedation start time: 942 Case end Time: 1039 Fentanyl 50.0 mcg Fluoro Time: 8.3 minutes Dose: DAP 1214 cGycm2 106 mGy Contrast Type and Amount: Visipaque 160 ml Coronary Angiography The patient's coronary anatomy is left dominant. Diagnostic Cath Left Main 0% narrowing LAD 75% clefted proximal stenosis with widely patent mid and distal LAD stents Circumflex 75% distal narrowing before prominent posterior descending branch Right Coronary Small nondominant vessel with 40% proximal and 50% mid vessel narrowing Left Ventriculography Left Ventriculography was not performed. Hemodynamics The aortic pressure is 206/65 mmHg with a mean of 104 mmHg. The left ventricular pressure is 193/1 mmHg with a mean of mmHg. The left ventricular end diastolic pressure is 16 mmHg. PCI Technique Lesion Anticoagulation was achieved with Angiomax. Patient was preloaded with Angiomax IV 12 ml. Percutaneous coronary intervention was performed on the proximal left anterior descending artery segment. The lesion stenosis prior to intervention was 75% with GABINO 3 flow. A 6FR XB 3.5 100CM Guide Catheter was used to engage the ostium. A IG: BMW 190cm Interventional Guidewire was used to cross the lesion. STENT DEPLOYMENT A stent [place] RX Stent 3.0X12mm was inserted and inflated up to 12.00atm for 10seconds. Additional Inflation: 15.00atm for 7seconds. [place] [address] CARDIAC CATH REPORT Name: ANGELA HARDWICK Room: [address]#: [id number] Admission: 11/07/19 Attend Phys: Angela Grossman MD, Discharge: Date of : 52 Report #: [id number] POST STENT DEPLOYMENT BALLOON DILATION A Balloon catheter [place] Trek RX 3.25X8 was inserted and inflated up to 17.00atm for 15seconds. Additional Inflation: 18.00atm for 13seconds. Final angiography reveals 0 % stenosis with GABINO 3 flow. Conclusion #1 Significant coronary artery disease characterized by the following A 75% proximal LAD stenosis followed by a widely patent mid and distal LAD stents B 75% narrowing of the distal portion of the dominant circumflex C small nondominant right coronary with 40% proximal and 50% mid vessel narrowing #2 significant systemic systolic hypertension with mild elevation of left ventricular end-diastolic pressure at rest #3 successful PCI with deployment of drug-eluting stent at the site of 75% clefted proximal LAD stenosis with 0% residual narrowing and GABINO-3 flow to the distal vessel Recommendations Cardiac Risk Reduction Program Aggressive Medical Therapy Medications Administered Aspirin (any) Prasugrel Diagnostic Cath Approved by: Angela Grossman MD Date/Time: 11/07/2019 15:08:47 <ELECTRONICALLY SIGNED> By: Angela Grossman MD, [facility] 11/07/19 1511 151 1511Angela Grossman MD, FACC /INF
--- NOTE | 2019-11-07 16:40 | NUR ---
PT HAS AN ELEVATED SBP IN THE 170S. [employer] OPERATIONS INTELLIGENCE CHIEF MADE AWARE. ORDER RECEIVE TO START THE HYDRALIZINE DOSE TONIGHT. WRITTEN ORDERS ENTERED ON Ebuzzing and Teads. SEE CHART. RIGHT GROIN SITE IS INTACT. SHIELDS PATENT BUT BLEEDING NOTICED AT EDGE OF PENIS. THIS WAS CLEANED. WILL CONTINUE TO MONITOR. BEDREST UNTILL 1700.
[2019-11-08 00:03] VITALS: BP 156/55
[2019-11-08 04:20] VITALS: BP 139/54
--- NOTE | 2019-11-08 04:22 | NUR ---
ASSUMED CARE OF PT AFTER REPORT AT 1930. PT A&OX4. VSS. PHYSICAL ASSESSMENT COMPLETED AND CHARTED. PT ON RA/NC 2L AT HS. PT TRACING SR/BBB ON TELE. PT UPADLI. POST CATH SITE TO RIGHT GROIN CLEAN, DRY & INTACT. MINIMAL BLEEDING NOTED. NO TENDERNESS, BRUISING OR HEMATOMA NOTED. PT DENIES ANY PAIN. PT ABLE TO SLEEP WELL ON BED. CALL LIGHT WITHIN REACH.
[2019-11-08 04:27] LABS: HEMATOCRIT 27.9 % (42.0-52.0); HEMOGLOBIN 9.7 gm/dL (14.0-18.0); MCHC 34.7 g/dL (28.0-37.0); MCV 86.5 fL (80.0-100.0); MPV 8.4 fl. (7.2-11.1); RBC 3.22 mil/uL (4.50-6.00); RDW-CV 15.6 % (10.5-14.5); WBC 10.9 thou/uL (4.0-11.0)
[2019-11-08 04:46] LABS: ALBUMIN 2.6 g/dL (3.4-5.0); CALCIUM 7.7 mg/dL (8.5-10.1); CREATININE 2.3 mg/dL (0.6-1.3); POTASSIUM 4.7 mmol/L (3.5-5.1); TOTAL BILIRUBIN 0.2 mg/dL (<0.1-1.0); TOTAL PROTEIN 5.5 g/dL (6.4-8.2); TROPONIN-I LEVEL 0.14 ng/mL (<0.06)
[2019-11-08 07:54] VITALS: BP 153/57
[2019-11-08 10:07] VITALS: BP 190/84
[2019-11-08 10:17] VITALS: BP 190/84
[2019-11-08] MEDS ORDERED: NITROSTAT0.4 M1 SUBLING (10:37)
[2019-11-08 10:50] VITALS: BP 174/59
--- NOTE | 2019-11-08 11:02 | NUR ---
assumed pt care report received from nurse pt is aox4. on ra. tracing sr bbb on conveyor monitor see chart. vss. no complaint. right groin site in intact. pt urinated during night and this am per pt. accuceck 57 orange juice given and accuceck after breakfast was 166. discharge ordered. scripts given. iv line removed. heart monitor retrieved. bp at time of discahrge 174/59 hr 63. pt left unit at 1053 accompanied by this nurse on wheelchair. belongings brought along.
--- NOTE | 2019-11-08 11:53 | EKG ---
[place] [address] ELECTROCARDIOGRAM REPORT Name: ANGELA HARDWICK Room: [address]R.#: [id number] Admission: 11/07/19 Attend Phys: Celina Hill Discharge: 11/08/19 Date of : 52 Date of Service: 11/08/19 0357 Report #: [id number] THIS REPORT FOR: //name// [facility] Test Date: 2019-11-08 Test Time: 03:57:29 Pat Name: ANGLEA HARDWICK Department: Room: [facility] Gender: M Insurance Clerk: : 1950 Requested By: Angela Grossman Order Number: [id number] Reading MD: Angela Grossman Measurements Intervals [place] Rate: 65 P: 18 NV: 163 QRS: 18 QRSD: 153 T: 31 QT: 459 QTc: 478 Interpretive Statements Sinus rhythm Right bundle branch block Abnormal inferior Q waves Compared to ECG 11/07/2019 12:25:53 Inferior Q waves persist Electronically Signed On 11-08-2019 11:51:52 CDT by Angela Grossman [email or web address] <ELECTRONICALLY SIGNED> By: Angela Grossman MD, [facility] 11/08/19 1151 0357 0357 Angela Grossman MD, [facility] /EPI
--- NOTE | 2019-11-10 10:03 | D ---
[address] [address] DISCHARGE SUMMARY Name: ANGELA HARDWICK Room: [address] Giovanni Valiente#: [id number] Admission: 11/07/19 Attend Phys: Angela Grossman MD, Discharge: 11/08/19 Date of : 52 Report #: [id number] THIS REPORT FOR: //name// cc: Pierre Orozco Aaron DO ~ THIS REPORT FOR: //name// CC: Pierre Grossman Robel Ramirez DATE OF SERVICE: 11/08/2019 FINAL DISCHARGE DIAGNOSES: 1. Unstable angina. 2. Coronary artery disease. 3. Status post percutaneous coronary intervention of the left anterior descending. 4. Hypertension. 5. Hyperlipidemia. 6. Tobacco abuse. 7. Diabetes mellitus. 8. Chronic renal insufficiency. PROCEDURES: 11/07/2019 -- left heart catheterization, selective coronary arteriography and percutaneous coronary intervention of the proximal LAD. The patient is a very pleasant and active 68-year-old male with known coronary artery disease, several weeks status post percutaneous coronary intervention of the proximal, mid and distal LAD. Recently, he has noted recrudescence of chest discomfort or pressure-like feeling with exertion and dyspnea, symptoms typical of his angina following a pattern of increased frequency and severity. He has underlying hypertension, hyperlipidemia, tobacco abuse, diabetes and renal insufficiency. In this context, I elected to perform recatheterization with the use of a minimal dye. That study revealed a 75% crafted lesion just proximal to previously stented proximal, mid and distal LAD sites. He also had 70-80% distal circumflex narrowing. In this setting, I elected to proceed with percutaneous coronary intervention, deploying one 3.0 x 12 mm Gaudencio drug-eluting stent in the proximal LAD with 0% residual narrowing and GABINO 3 flow to the distal vessel. Respecting his renal dysfunction with a creatinine of 2.8 and BUN of 55 [place] [address] DISCHARGE SUMMARY Name: ANGELA HARDWICK Room: [address] Giovanni Valiente#: [id number] Admission: 11/07/19 Attend Phys: Angela Grossman MD, Discharge: 11/08/19 Date of : 52 Report #: [id number] preprocedurally, I elected not to undertake the second lesion in the distal circumflex as described above, a 70-80%. The patient did well post-procedurally and there was good hemostasis at the right femoral site of catheterization. With hydration and modification of antihypertensive therapy with discontinuation of diuretic and BERNADETTE inhibition, renal function parameters were significantly improved on 11/08/2019. He also received significant hydration periprocedurally. BUN was down from 55 to 46, creatinine down from 2.8 to 2.3. Sodium 147, potassium 4.7, BUN 46, creatinine 2.3, glucose 73. White blood cell count 10,900, hemoglobin 9.7, hematocrit 27.9, platelets 212,000. Troponin mateusz inconsequentially to 0.14. As noted above, the patient ambulated in the hallways without difficulty. He was discharged to home on 11/08/2019 on the following medications: Aspirin 81 mg daily, citalopram 20 mg daily, hydralazine 50 mg b.i.d. (doubling of his prior dose), Lantus insulin 25 units at bedtime, prasugrel or Effient 10 mg daily, pregabalin or Lyrica 75 mg in the p.m. and simvastatin 40 mg at bedtime. Ramipril and thiazide diuretic were discontinued. I will plan to see the patient in 1 week with a BMP prior to that visit. He will require a staged intervention to the distal circumflex assuming as a stability of his renal function parameters as outlined above. Therefore, the patient was discharged to home in stable condition on the aforementioned medications with followup as described above. <ELECTRONICALLY SIGNED> By: Angela Grossman MD, FACC 11/10/19 1003 0941 1037Joarsenio Grossman MD, FAC /nt
== END 2019-11-08 10:53 | disposition home or self-care (01) ==
LOC: M.CRD 08:04 → M.2W 11:02 → M.TBA-CV 11:02 → M.2W 11:44 → M.CRD 14:55 → M.2W 11-08 10:53
PROVIDERS: ADMIT Internal Medicine
DX: I25.110 Atherosclerotic heart disease of native coronary artery with unstable angina pectoris (principal); I10 Essential (primary) hypertension; E78.5 Hyperlipidemia, unspecified; E11.9 Type 2 diabetes mellitus without complications; N28.9 Disorder of kidney and ureter, unspecified; F17.200 Nicotine dependence, unspecified, uncomplicated

== ENCOUNTER 2019-11-21 09:30 | Observation (INO) | payer MEDICARE, OTHER ==
[2019-11-21] VITALS (7 sets, daily range): BP systolic 165–191; BP diastolic 72–83
[~2019-11-21] VITALS: Ht 177.8 cm; Wt 81.6 kg
[~2019-11-21 09:30] MED LIST changes: +ALTACE10 MG PO; +HYDRALAZINE 2525 MG PO; +HYDROCHLOROTHIA25 M2 PO; +NITROSTAT0.4 M1 SUBLING
[2019-11-21 10:01] LABS: HEMATOCRIT 32.2 % (42.0-52.0); HEMOGLOBIN 11.2 gm/dL (14.0-18.0); MCH 29.7 pg (26.0-34.0); MCHC 34.7 g/dL (28.0-37.0); MCV 85.8 fL (80.0-100.0); MPV 8.2 fl. (7.2-11.1); RBC 3.76 mil/uL (4.50-6.00); RDW-CV 15.4 % (10.5-14.5); WBC 21.7 thou/uL (4.0-11.0)
[2019-11-21 10:14] LABS: ANION GAP 14 mmol/L (7-16); BUN 39 mg/dL (7-18); CALCIUM 9.2 mg/dL (8.5-10.1); CHLORIDE 105 mmol/L (98-107); CO2 20 mmol/L (21-32); CREATININE 2.6 mg/dL (0.6-1.3); GLUCOSE 152 mg/dL (70-99); POTASSIUM 4.1 mmol/L (3.5-5.1); SODIUM 139 mmol/L (136-145)
[2019-11-21 10:18] LABS: ALBUMIN 3.6 g/dL (3.4-5.0); ALKALINE PHOSPHATASE 88 U/L (46-116); CHOLESTEROL 161 mg/dL (<200); HDL CHOLESTEROL 68 mg/dL (>40); LDL CHOLESTEROL 77 mg/dL (<100); SGOT 20 U/L (15-37); SGPT 34 U/L (30-65); TC:HDL 2.4 Ratio (Not establshd); TOTAL BILIRUBIN 0.3 mg/dL (<0.1-1.0); TOTAL PROTEIN 7.5 g/dL (6.4-8.2); TRIGLYCERIDE 84 mg/dL (<150); VLDL 17 mg/dL (<40)
[2019-11-21 10:19] LABS: SERUM ASSESSMENT Clear
[2019-11-21 10:29] LABS: APTT 28.2 Seconds (25.0-31.3); PROTIME 10.4 Seconds (9.20-11.50)
--- NOTE | 2019-11-21 16:37 | EKG ---
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 : 1950 Requested By: Angela Grossman Order Number: [id number] Ramesh MD: Jun Castro Measurements Intervals [place] Rate: 87 P: 73 IN: 154 QRS: 33 QRSD: 152 T: 28 QT: 452 QTc: 544 Interpretive Statements Sinus rhythm Right bundle branch block Artifact in lead(s) II,III,aVR,aVL,aVF,V3,V4,V5,V6 Compared to ECG 11/08/2019 03:57:29 Inferior Q waves no longer present Q waves no longer present Electronically Signed On 11-21-2019 16:36:06 CDT by Jun Castro [email or web address] <ELECTRONICALLY SIGNED> By: Jun Castro MD, [facility] 11/21/19 1636 Jun Castro MD, [facility] /EPI
--- NOTE | 2019-11-21 16:38 | EKG ---
[place] [address] ELECTROCARDIOGRAM REPORT Name: ANGELA HARDWICK Room: [address]R.#: [id number] Admission: 11/21/19 Attend Phys: Celina Hill Discharge: Date of : 52 Date of Service: 11/21/19 1225 Report #: [id number] THIS REPORT FOR: //name// Test Date: 2019-11-21 Test Time: 12:25:35 Pat Name: ANGELA GOLDMANACH Department: Room: 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 : 1950 Requested By: Angela Grossman Order Number: [id number] Ramesh MD: Jun Castro Measurements Intervals [place] Rate: 79 P: 72 [place]: 168 QRS: 46 QRSD: 153 T: 35 QT: 452 QTc: 519 Interpretive Statements Sinus rhythm Right bundle branch block Compared to ECG 11/08/2019 03:57:29 Inferior Q waves no longer present Q waves no longer present Electronically Signed On 11-21-2019 16:36:30 CDT by Jun Castro [email or web address] <ELECTRONICALLY SIGNED> By: Jun Castro MD, FAC 11/21/19 1636 1225 1225 Jun Castro MD, [facility] /EPI
--- NOTE | 2019-11-21 19:58 | NUR ---
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 HE IS ALERT AND ORIENTED X4 AND IS FLAT ON HIS BACK UNTIL 1730. 1 STENT WAS PLACED. RIGHT FEMORAL GROIN SITE IS C/D/I AND HAS A TRANSPARENT PRESSURE DRESSING IN PLACE. BED IS IN THE LOW LOCKED POSITION AND CALL LIGHT IS IN REACH. FLUIDS ARE INFUSING AT 125/HR UNTIL [address] CASILLAS. VITALS WERE STABLE DURING POST CATH TIME. HE TOLERATED ICE CHIPS, WATER AND FOOD WELL. BLOOD SUGAR WAS MAINTAINED AND MONITORED. WILL CONTINUE TO MONITOR.
[2019-11-22] VITALS: BP 153/63
[2019-11-22 04:00] VITALS: BP 114/48
[2019-11-22 06:02] LABS: HEMATOCRIT 24.9 % (42.0-52.0); MCHC 35.2 g/dL (28.0-37.0); MCV 85.1 fL (80.0-100.0); RBC 2.93 mil/uL (4.50-6.00); RDW-CV 15.4 % (10.5-14.5); WBC 11.8 thou/uL (4.0-11.0)
[2019-11-22 06:10] LABS: HEMOGLOBIN 8.8 gm/dL (14.0-18.0)
[2019-11-22 06:19] LABS: ALBUMIN 2.5 g/dL (3.4-5.0); CREATININE 2.6 mg/dL (0.6-1.3); TOTAL BILIRUBIN 0.2 mg/dL (<0.1-1.0); TOTAL PROTEIN 5.5 g/dL (6.4-8.2)
[2019-11-22 06:28] LABS: TROPONIN-I LEVEL 0.86 ng/mL (<0.06)
[2019-11-22 07:00] VITALS: BP 169/61
--- NOTE | 2019-11-22 10:05 | NUR ---
INITAL ASSESSMENT COMPLETED CHARGED. VSS. TRACING SR WITH 1ST DEGREE BLOCK ON MONITOR. SHIELDS IN PLACE DRAINING PINNK BLOOD TINGED CLEAR URINE. PT WIN PAIN, CP, SOA, N/V/D. REFER TO COMPUTER CHARTING FOR FURTHER DETAILS. HOURLY ROUNDING IN P[LACE FOR PT SAFETY. CLWR.
[2019-11-22 10:13] VITALS: BP 165/83
--- NOTE | 2019-11-22 13:11 | CARD ---
[address] [address] CARDIAC CATH REPORT Name: ANGELA HARDWICK Room: [address] M.RLindsay#: [id number] Admission: 11/21/19 Attend Phys: Angela Grossman MD, Discharge: 11/22/19 Date of : 52 Report #: [id number] THIS REPORT FOR: //name// cc: Pierre Orozco Aaron DO ~ APPROVED REPORT Study performed: 11/21/2019 09:56:21 Patient Details Patient Status: Out-Patient Room #: The patient is a 68 year-old male Event Personnel Angela Grossman Head Paper Tester, Sandra Mays Lining Repairer, Rome Cowart RN Lining Repairer, Lavelle Nair Scrub, Asia Campbell RTR Monitor Procedures Performed Art Access - R femoral artery, Left Heart Cath w/or w/o Coronaries LHC, HANS Place w/wo Plasty Single CIRC ,Hemostasis w/ Angioseal Indication Unstable angina Risk Factors Hypercholesterolemia, Hypertension, Last Creatanine 2.6 Previous Procedures/Diagnoses Previous PCI Admission/Lab Medications/Medications given during procedure Cipro IV 500 mg, Angiomax IV bolus 12 mg per kg, Angiomax Drip IV 16.36 ml per hr, Effient PO 10 mg, Angiomax IV bolus 2 mg per kg Procedure Narrative The patient was brought electively to the Cardiac Catheterization Laboratory and was prepped and draped in a sterile manner. The right femoral was infiltrated with 2% Lidocaine subcutaneous anesthesia. A 6F Pandora sheath was inserted into the right femoral artery. Coronary angiography was performed using coronary diagnostic catheters. The left coronary system was accessed and visualized with a 6F JL4 catheter. The left ventricle [place] [address] CARDIAC CATH REPORT Name: ANGELA HARDWICK Pre Room: [address] Steffanie#: [id number] Admission: 11/21/19 Attend Phys: Angela Grossman MD, Discharge: 11/22/19 Date of : 52 Report #: [id number] with a 6F JR4 catheter. Left ventricular/Aortic Valve gradient assessed via catheter pullback. Pre-demployment femoral angiogram was performed . Closure device was deployed with a 6 Fr Angioseal STS. The patient tolerated the procedure well and there were no complications associated with the procedure. There was no hematoma. Intraoperative Conscious Sedation Sedation start time: 10:57 Case end Time: 11:33 Fentanyl 75 mcg Versed 3 mg Fluoro Time: 5.5 minutes Dose: DAP 60905 cGycm2 898 mGy Contrast Type and Amount: Visipaque 195 ml Coronary Angiography The patient's coronary anatomy is left dominant. Diagnostic Cath Left Main 0% narrowing LAD Widely patent proximal mid and distal LAD stents with 0% narrowing Circumflex Dominant vessel with 30% mid vessel narrowing and 80% tubular distal narrowing before trifurcation Right Coronary Previously defined small nondominant vessel with 50% narrowing Left Ventriculography Left Ventriculography was not performed. Pressures only recorded. Hemodynamics The aortic pressure is 202/60 mmHg with a mean of 108 mmHg. The left ventricular pressure is 190/0 mmHg with a mean of mmHg. The left ventricular end diastolic pressure is 25 mmHg. There was no gradient across the aortic valve upon pullback. PCI Technique Lesion Anticoagulation was achieved with Angiomax. Patient was preloaded with Angiomax IV bolus 12 mg per kg. Percutaneous coronary intervention was performed on the distal circumflex artery segment. The lesion stenosis prior to intervention was 80% with GABINO 3 flow. A 6F XB LAD 4.0 Guide Catheter was used to engage the left main ostium. A BMW 190cm Interventional Guidewire [place] [address] CARDIAC CATH REPORT Name: HARDWICKANGELA Albarado Room: [address] Steffanie#: [id number] Admission: 11/21/19 Attend Phys: Angela Grossman MD, Discharge: 11/22/19 Date of : 52 Report #: [id number] BALLOON DILATION A Balloon catheter Trek RX 2.25 X 12 was inserted and inflated up to 14.00atm for 13seconds. STENT DEPLOYMENT A drug-eluting stent Gaudencio RX Stent 2.5X15mm was inserted and inflated up to 11.00atm for 12seconds. Additional Inflation: 14.00atm for 7seconds. Final angiography reveals 0 % stenosis with GABINO 3 flow. Conclusion 1. Significant coronary artery disease characterized by the following: A prominent LAD system with widely patent proximal mid and distal stents B dominant circumflex with 30% mid vessel narrowing and 80% distal stenosis C small nondominant right coronary artery with 50% narrowing 2. Significant systemic systolic hypertension 3. Successful PCI with deployment of a drug-eluting stent at the site of 80% distal circumflex stenosis with 0% residual narrowing and GABINO-3 flow to the distal vessel Recommendations Cardiac Risk Reduction Program Aggressive Medical Therapy Medications Administered Aspirin (any) Prasugrel Diagnostic Cath Approved by: Angela Grossman MD Date/Time: 11/22/2019 13:07:32 <ELECTRONICALLY SIGNED> By: Angela Grossman MD, [facility] 11/22/19 1308 1308 1308Angela Grossman MD, FACC /INF
--- NOTE | 2019-11-22 15:29 | EKG ---
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 : 1950 Requested By: Angela Grossman Order Number: [id number] Ramesh MD: Angela Grossman Measurements Intervals [place] Rate: 68 P: 16 NC: 162 QRS: 8 QRSD: 156 T: 5 QT: 523 QTc: 557 Interpretive Statements Sinus rhythm Right bundle branch block Abnormal inferior Q waves Compared to ECG 11/21/2019 12:25:35 Inferior Q waves persist Electronically Signed On 11-22-2019 15:27:38 CDT by Angela Grossman [email or web address] <ELECTRONICALLY SIGNED> By: Angela Grossman MD, [facility] 11/22/19 1527 0616 0616 Angela Grossman MD, [facility] /EPI
--- NOTE | 2019-11-23 17:13 | D ---
[address] [address] DISCHARGE SUMMARY Name: ANGELA HARDWICK Room: [address] Giovanni Valiente#: [id number] Admission: 11/21/19 Attend Phys: Angela Grossman MD, Discharge: 11/22/19 Date of : 52 Report #: [id number] THIS REPORT FOR: //name// cc: Pierre Orozco Aaron DO ~ THIS REPORT FOR: //name// CC: Pierre Grossman DATE OF SERVICE: 11/22/2019 FINAL DISCHARGE DIAGNOSES: 1. Unstable angina. 2. Coronary artery disease. 3. Status post recent stenting of the left anterior descending with PCI to the distal circumflex on 11/21/2019. 4. Hypertension. 5. Hyperlipidemia. 6. Diabetes mellitus. 7. Tobacco abuse. 8. Chronic renal insufficiency. 9. Anemia. 10. Hematuria. PROCEDURES: On 11/21/2019 -- left heart catheterization, selective coronary arteriography and percutaneous coronary intervention with deployment of a drug-eluting stent in the distal circumflex. HOSPITAL COURSE: The patient is a very pleasant and active 68-year-old male with multiple medical problems including hypertension, hyperlipidemia, diabetes and aggressive coronary artery disease. He underwent stenting of the LAD approximately 10 days ago, but he continued to experience recurrent discomfort. I did not proceed with circumflex intervention the initial setting by virtue of the magnitude of renal dysfunction. He was readmitted on 11/21/2019. Catheterization revealed widely patent LAD stents. There was residual 80% distal circumflex stenosis. I deployed 1 drug-eluting stent in the distal circumflex with 0% residual narrowing and GABINO 3 flow of the distal vessel. LABORATORY DATA: Revealed sodium 141, potassium 4.0, BUN 39, and creatinine 2.6 (unchanged since preop renal values). Hemoglobin down to 8.8 with persistent hematuria exacerbated by the Angiomax infusion, white blood cell count 11.8, and platelets 220,000. Troponin 0.86. The patient ambulated in the hallways without difficulty and there was good hemostasis at the right [place] [address] DISCHARGE SUMMARY Name: ANGELA HARDWICK Room: [address] Steffanie#: [id number] Admission: 11/21/19 Attend Phys: Angela Grossman MD, Discharge: 11/22/19 Date of : 52 Report #: [id number] DISCHARGE MEDICATIONS: The patient was discharged to home on the following medications: Effient or prasugrel 10 mg daily, citalopram or Celexa 20 mg daily, hydralazine 50 mg b.i.d., Lantus insulin 25 units subcutaneously at bedtime, p.r.n. sublingual nitroglycerin, Lyrica 50 mg in the evening, and simvastatin 40 mg at bedtime. Aspirin was discontinued in the context of his persistent hematuria. Also, continued Imdur 30 mg daily. We will plan to see the patient in 1 week in the office for followup in the context of his fall in hemoglobin related to hematuria to ascertain stability. Also, urologic followup is scheduled for this next week. Therefore, he will follow up with ourselves in 1 week and myself in approximately 6 weeks. Therefore, the patient is discharged to home in stable condition on the aforementioned medications with followup as described above. <ELECTRONICALLY SIGNED> By: Angela Grossman MD, [facility] 11/23/19 1713 0938 0950Angela Grossman MD, [facility] /nt
== END 2019-11-22 12:10 | disposition home or self-care (01) ==
LOC: M.CL 09:30 → M.TBA-CV 11:51 → M.2W 13:33
PROVIDERS: ADMIT Internal Medicine
DX: I25.110 Atherosclerotic heart disease of native coronary artery with unstable angina pectoris (principal); I10 Essential (primary) hypertension; E78.5 Hyperlipidemia, unspecified; E11.9 Type 2 diabetes mellitus without complications; R31.9 Hematuria, unspecified; D64.9 Anemia, unspecified; N28.9 Disorder of kidney and ureter, unspecified; F17.200 Nicotine dependence, unspecified, uncomplicated

== ENCOUNTER 2020-04-30 20:07 | Inpatient (IN) | payer MEDICARE, OTHER ==
[~2020-04-30] VITALS: Ht 177.8 cm; Wt 83.0 kg
[2020-04-30 23:26] VITALS: BP 199/70
[2020-04-30 23:56] LABS: HEMATOCRIT 30.7 % (42.0-52.0); HEMOGLOBIN 10.4 gm/dL (14.0-18.0); MCHC 33.9 g/dL (28.0-37.0); MCV 85.3 fL (80.0-100.0); MPV 8.3 fl. (7.2-11.1); RBC 3.6 mil/uL (4.50-6.00); RDW-CV 15.5 % (10.5-14.5)
[2020-05-01] VITALS (15 sets, daily range): BP systolic 130–201; BP diastolic 53–95
[2020-05-01 00:10] LABS: ALKALINE PHOSPHATASE 72 U/L (46-116); ANION GAP 9 mmol/L (7-16); BUN 50 mg/dL (7-18); CALCIUM 8.3 mg/dL (8.5-10.1); CHLORIDE 103 mmol/L (98-107); CO2 27 mmol/L (21-32); GLUCOSE 487 mg/dL (70-99); NT-PRO BRAIN NAT PEPTIDE 5348 pg/mL (<300); POTASSIUM 4.2 mmol/L (3.5-5.1); SGOT 8 U/L (15-37); SGPT 22 U/L (30-65); SODIUM 139 mmol/L (136-145); TOTAL BILIRUBIN 0.3 mg/dL (<0.1-1.0); TOTAL PROTEIN 6.5 g/dL (6.4-8.2); TROPONIN-I LEVEL <0.06 ng/mL (<0.06)
[2020-05-01 00:12] LABS: APTT 25.4 Seconds (25.0-31.3); PROTIME 10.7 Seconds (9.20-11.50)
[2020-05-01] MEDS ORDERED: RAMIPRIL5 MG PO (03:38)
[2020-05-01] MEDS ORDERED: IRON18 M1 PO (07:30)
[2020-05-01] MEDS ORDERED: VITAMIN C1000 MG PO (07:31)
[2020-05-01] MEDS ORDERED: VITAMIN D-40010 MCG PO (07:33)
[2020-05-01] MEDS ORDERED: COREG6.25 MG PO (08:54)
--- NOTE | 2020-05-01 09:54 | EKG ---
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
--- NOTE | 2020-05-01 12:11 | CON ---
[address] [address] CONSULTATION Name: ANGELA HARDWICK Per Room: [address] IN M.R.#: [id number] Admission: 04/30/20 Attend Phys: Lisha Wilkes MD Discharge: Date of : 52 Report #: [id number] THIS REPORT FOR: //name// cc: Pierre Orozco Aaron DO ~ THIS REPORT FOR: //name// CARDIOLOGY CONSULT INDICATION: Hypertension and elevated troponin. HISTORY OF PRESENT ILLNESS: The patient is a very pleasant 69-year-old gentleman who was seen originally at [facility] yesterday with hypertensive urgency. In that setting, his troponin was minimally elevated. He was transferred to [facility] for further evaluation and treatment. On arrival, the patient remained stable. He is not having any chest pain. EKG shows sinus rhythm with right bundle branch block and nonspecific T-wave inversion in the anterolateral leads. Troponins here have been unremarkable x 3 sets. The patient remains stable from a cardiac standpoint. After receiving medication in the Emergency Room and further in the hospital, his blood pressure has come under better control. He is without cardiac complaint at this time. PAST MEDICAL HISTORY: 1. Coronary artery disease with recent percutaneous coronary intervention in the mid LAD and mid circumflex coronary arteries. 2. Hyperlipidemia. 3. Hypertension. 4. Tobacco use. 5. Type 2 diabetes mellitus. 6. Stage 3 chronic renal insufficiency. PAST SURGICAL HISTORY: Percutaneous coronary intervention as outlined above. SOCIAL HISTORY: The patient is . He and his live in [place]. He smokes tobacco. He does not drink alcohol. FAMILY HISTORY: Noncontributory. ALLERGIES: AMOXICILLIN, ERYTHROMYCIN, AND PENICILLIN. HOME MEDICATIONS: Carvedilol 6.25 mg p.o. b.i.d., Celexa 20 mg daily, fish oil 500 mg daily, hydralazine 100 mg t.i.d., Lantus insulin 25 units nightly, Imdur 30 mg daily, Effient 10 mg daily, Lyrica 50 mg b.i.d., simvastatin 20 mg daily. REVIEW OF SYSTEMS: As per HPI, otherwise, positive for a.m. cough that is nonproductive, dyspnea on exertion, [place] [address] CONSULTATION Name: ANGELA HARDWICK Room: [address] IN [facility]#: [id number] Admission: 04/30/20 Attend Phys: Lisha Wilkes MD Discharge: Date of : 52 Report #: [id number] PHYSICAL EXAMINATION: VITAL SIGNS: Blood pressure 130/58, pulse 61 and regular. GENERAL: This is a pleasant gentleman in no distress. Mood and affect appropriate. HEENT: Head is normocephalic, atraumatic. Extraocular muscles intact. Mucous membranes are moist. NECK: Shows no jugular venous distention. There are no carotid bruits. CHEST: Reveals diminished breath sounds throughout with prolonged expiration. I do not appreciate wheezes. CARDIOVASCULAR: Reveals a regular rhythm without gallop or murmur. ABDOMEN: Reveals normal bowel sounds. The abdomen is soft, nontender. EXTREMITIES: Show no edema. Peripheral pulses palpable. SKIN: Dry. IMAGING: A 12-lead EKG as outlined above shows sinus rhythm with right bundle branch block and nonspecific T-wave inversion in anterolateral leads. LABORATORY DATA: Labs are reviewed. Sodium 139, potassium 4.2, chloride 103, bicarbonate 27, BUN 50, creatinine 3.0, serum glucose 487. LFTs within normal limits. Troponins less than 0.06 on 2 separate occasions. NT-proBNP 5348. Lipid profile in November showed total cholesterol 161, triglycerides 84, HDL 68, LDL 77. White blood cell count 11.0, hemoglobin 10.4, platelet count 240,000. IMPRESSION AND RECOMMENDATIONS: 1. Hypertension. The patient had run out of carvedilol recently. We will resume home medications. I am decreasing carvedilol to 3.125 mg twice daily as he is somewhat bradycardic at night. We will resume hydralazine 100 mg 3 times daily and ramipril 5 mg b.i.d. We will transfer to telemetry, possibly home once blood pressure stable. 2. Coronary artery disease, presently stable. He is not having any angina. His troponins here are unremarkable. EKG is stable. Continue antiplatelet therapy in the form of Effient. 3. Hyperlipidemia. The patient's LDL cholesterol fairly well controlled on current dose of simvastatin. We will continue at home. 4. Tobacco abuse. Cessation discussed and advised. 5. Chronic renal insufficiency, presently stable. 6. Type 2 diabetes mellitus, per hospitalist and primary care physician. <ELECTRONICALLY SIGNED> By: Jun Castro MD, FACC 05/01/20 1211 0940 0959Mickerry Castro MD, FACC /nt
--- NOTE | 2020-05-01 13:39 | 2DMMODE ---
[place] [address] 2 D/M-MODE ECHOCARDIOGRAM Name: RONENANGELA Per Room: [address] [place] .R.#: [id number] Admission: 04/30/20 Attend Phys: Lisha Wilkes, Discharge: Date of : 52 Date of Service: 05/01/20 1339 Report #: [id number] THIS REPORT FOR: cc: Pierre Orozco,Pierre Finch,Jun Brito MD [facility] ~ APPROVED REPORT Study performed: 05/01/2020 09:36:33 EXAM: Comprehensive 2D, Doppler, and color-flow Echocardiogram Patient Location: Bedside BSA: 2.03 HR: 54 bpm BP: 130/58 mmHg Other Information Study Quality: Good Indications Chest Pain 2D Dimensions IVSd: 15.66 (7-11mm) LVOT Diam: 20.46 (18-24mm) LVDd: 52.74 mm PWd: 13.26 (7-11mm) Ascending Ao: 32.35 (22-36mm) LVDs: 35.03 (25-40mm) Aortic Root: 35.85 mm Volumes Left Atrial Volume (Systole) LA ESV Index: 28.20 mL/m2 Aortic Valve AoV Peak Branden.: 1.81 m/s AO Peak Gr.: 13.09 mmHg LVOT Max P.15 mmHg AO Mean Gr.: 7.44 mmHg LVOT Mean P.83 mmHg LVOT Max V: 1.43 m/s AO V2 VTI: 49.65 cm LVOT Mean V: 0.88 m/s NAM (VTI): 2.67 cm2 LVOT V1 VTI: 40.35 cm Mitral Valve E/A Ratio: 0.68 [place] [address] 2 D/M-MODE ECHOCARDIOGRAM Name: ANGELA HARDWICK Room: [address] [place] .R.#: [id number] Admission: 04/30/20 Attend Phys: Lisha [place], Discharge: Date of : 52 Date of Service: 05/01/20 1339 Report #: [id number] MV Decel. Time: 366.73 ms MV E Max Branden.: 0.89 m/s MV PHT: 106.35 ms MVA (PHT): 2.07 cm2 TDI E/Lateral E': 8.90 E/Medial E': 14.83 Medial E' Branden.: 0.06 m/s Lateral E' Branden.: 0.10 m/s Pulmonary Valve PV Peak Branden.: 0.94 m/s PV Peak Gr.: 3.52 mmHg Tricuspid Valve RAP Estimate: 5.00 mmHg TR Peak Gr.: 9.04 mmHg RVSP: 14.04 mmHg PA Pressure: 14.04 mmHg Left Ventricle The left ventricle is normal size. There is normal LV segmental wall motion. Mild to moderate concentric left ventricular hypertrophy. Left ventricular systolic function is normal. LVEF is 65-70%. Grade I - abnormal relaxation pattern. Right Ventricle The right ventricle is normal size. The right ventricular systolic function is normal. Atria The left atrium size is normal. The right atrium size is normal. Aortic Valve The aortic valve is normal in structure. No aortic regurgitation is present. There is no aortic valvular stenosis. Mitral Valve There is mitral annular calcification. There is no mitral valve regurgitation noted. No evidence of mitral valve stenosis. Tricuspid Valve The tricuspid valve is normal in structure. Trace tricuspid regurgitation. No pulmonary hypertension. Pulmonic Valve The pulmonary valve is normal in structure. [place] [address] 2 D/M-MODE ECHOCARDIOGRAM Name: ANGELA HARDWICK Room: [address]#: [id number] Admission: 04/30/20 Attend Phys: Lisha [place], Discharge: Date of : 52 Date of Service: 05/01/20 1339 Report #: [id number] valvular regurgitation. Great Vessels The aortic root is normal in size. IVC is normal in size and collapses >50% with inspiration. Pericardium There is no pericardial effusion. <Conclusion> The left ventricle is normal size. Mild to moderate concentric left ventricular hypertrophy. Left ventricular systolic function is normal. LVEF is 65-70%. Grade I - abnormal relaxation pattern. Trace tricuspid regurgitation. No pulmonary hypertension. IVC is normal in size and collapses >50% with inspiration. <ELECTRONICALLY SIGNED> By: Jun Castro MD, FACC 05/01/20 1339 1339 [id number] Jun Castro MD, FACC /INF
[2020-05-02 00:04] VITALS: BP 112/51
[2020-05-02 04:25] VITALS: BP 132/51
[2020-05-02 07:09] LABS: HEMATOCRIT 28.1 % (42.0-52.0); RDW-CV 15.3 % (10.5-14.5)
[2020-05-02 07:11] LABS: ABSOLUTE BASOPHILS 0.1 thou/uL (0.0-0.2); ABSOLUTE EOSINOPHILS 0.2 thou/uL (0.0-0.7); ABSOLUTE LYMPHOCYTES 3.7 thou/uL (0.8-5.3); ABSOLUTE MONOCYTES 0.7 thou/uL (0.0-1.2); ABSOLUTE NEUTROPHILS 5.7 thou/uL (1.6-8.1); BASOPHILS 0.6 %; EOSINOPHILS 2.1 %; HEMOGLOBIN 9.8 gm/dL (14.0-18.0); LYMPHOCYTES 35.5 %; MCH 29.6 pg (26.0-34.0); MCHC 34.8 g/dL (28.0-37.0); MCV 85.2 fL (80.0-100.0); MONOCYTES 7.2 %; NUCLEATED RBCS 0 /100WBC; PLATELET COUNT* 221 thou/uL (150-400); POLYS 54.6 %; WBC 10.4 thou/uL (4.0-11.0)
[2020-05-02 07:21] LABS: % SATURATION 36 % (20-39); IRON 62 ug/dL (50-175)
[2020-05-02 07:22] LABS: CALCIUM 7.9 mg/dL (8.5-10.1); PHOSPHORUS* 4.4 mg/dL (2.5-4.9)
[2020-05-02 07:29] LABS: CALCIUM 8.3 mg/dL (8.5-10.1); CREATININE 2.8 mg/dL (0.6-1.3); PHOSPHORUS* 4.4 mg/dL (2.5-4.9); POTASSIUM 4.2 mmol/L (3.5-5.1)
[2020-05-02 07:36] LABS: MAGNESIUM 2.3 mg/dL (1.8-2.4); TROPONIN-I LEVEL <0.06 ng/mL (<0.06)
[2020-05-02 08:00] VITALS: BP 128/48
[2020-05-02] MEDS ORDERED: CARVEDILOL3.125 MG PO (09:00)
[2020-05-02] MEDS ORDERED: HYDRALAZINE 2525 MG PO (09:00)
[2020-05-02] MEDS ORDERED: LISINOPRIL10 MG PO (09:00)
[2020-05-02 11:12] VITALS: BP 128/48
[2020-05-02 11:16] VITALS: BP 128/48
== END 2020-05-02 13:05 | disposition home or self-care (01) | DRG 303 ==
LOC: M.ICU 20:07 → M.2W 05-01 18:24
PROVIDERS: Internal Medicine Cardiovascular Disease; Internal Medicine Nephrology; ADMIT Internal Medicine; ATTEND Internal Medicine
DX: I25.119 Atherosclerotic heart disease of native coronary artery with unspecified angina pectoris (principal); I16.1 Hypertensive emergency; N18.4 Chronic kidney disease, stage 4 (severe); N17.9 Acute kidney failure, unspecified; I12.9 Hypertensive chronic kidney disease with stage 1 through stage 4 chronic kidney disease, or unspecified chronic kidney disease; E78.5 Hyperlipidemia, unspecified; F17.210 Nicotine dependence, cigarettes, uncomplicated; E11.22 Type 2 diabetes mellitus with diabetic chronic kidney disease; Z88.1 Allergy status to other antibiotic agents; Z88.0 Allergy status to penicillin; Z71.6 Tobacco abuse counseling; Z82.49 Family history of ischemic heart disease and other diseases of the circulatory system; Z79.899 Other long term (current) drug therapy